=== PATIENT | male | born 1970 | race Caucasian/White ===

== ENCOUNTER 2016-05-21 13:59 | Emergency (ER) | payer OTHER ==
[~2016-05-21] VITALS: Ht 177.8 cm; Wt 75.0 kg
[2016-05-21 14:02] VITALS: BP 137/80; PULSE 75; RESP 10; TEMP 97.4; O2SAT 95
[2016-05-21] MEDS ORDERED: LIDOCAINE HCL 1% 50 ML VIAL INFIL ONE (14:45)
[2016-05-21] MEDS ORDERED: TETANUS/DIPHTHERIA TOXOID ADULT 0.5 ML VIAL IM ONE (14:45)
--- NOTE | 2016-05-21 14:50 | PD ---
HPI Chief Complaint: Laceration/Skin Injury Time Seen by Provider: 14:41 Travel History International Travel<30 days: No Contact w/Intl Traveler<30days: No Traveled to known affect area: No History of Present Illness HPI 46-year-old right-hand dominant male presents to the ED for evaluation of left thumb laceration. Onset after falling at work, tripping and landing on a piece of metal rebar. This lacerated the tip of the thumb. The patient denies numbness, tingling, weakness, limitations to range of motion of the digit. Last tetanus immunization is unknown. He denies chronic health problems, takes no daily medications. NKDA. PFSH Social History Tobacco Use: No Allergies-Medications (Allergen,Severity, Reaction): Coded Allergies: No Known Allergies (Unverified , 05/21/16) Reported Meds & Prescriptions Reported Meds & Active Scripts Active Tramadol (Tramadol HCl) 50 Mg Tab 100 Mg PO Q6H PRN Keflex (Cephalexin) 500 Mg Cap 500 Mg PO Q6H 10 Days Bactrim DS (Sulfamethoxazole-Trimethoprim) 800-160 Mg Tab 1 Tab PO BID Review of Systems Except as stated in HPI: all other systems reviewed are Neg Physical Exam Narrative GENERAL: Well-nourished, well-developed male in no acute distress. SKIN: Warm and dry. The 2 cm laceration to the distal tip of the right thumb. No active bleeding or visible foreign body. HEAD: Normocephalic. EYES: No scleral icterus. No injection or drainage. NECK: Supple, trachea midline. No JVD or lymphadenopathy. CARDIOVASCULAR: Regular rate and rhythm without murmurs, gallops, or rubs. RESPIRATORY: Breath sounds equal bilaterally. No accessory muscle use. GASTROINTESTINAL: Abdomen soft, non-tender, nondistended. MUSCULOSKELETAL: No cyanosis, or edema. FOCUSED RIGHT UPPER EXTREMITY EXAM: Patient maintains full, active range of motion of the fingers of the right hand. Strong finger to thumb opposition. Cap refill less than 2 seconds. Sensation intact to light touch distally. BACK: Nontender without obvious deformity. No CVA tenderness. Data Data Last Documented VS Vital Signs Date Time Temp Pulse Resp B/P Pulse Ox O2 Delivery O2 Flow Rate FiO2 05/21/16 14:02 97.4 75 10 137/80 95 Room Air Orders Tetanus/Diphtheria Tox Adult (Tetanus/Di (05/21/16 14:45) Lidocaine 1% Inj (50 Ml) (Xylocaine 1% I (05/21/16 14:45) Finger ([id number]) (05/21/16 14:38) MDM Medical Decision Making Medical Screen Exam Complete: Yes Emergency Medical Condition: Yes Differential Diagnosis Laceration versus tuft fracture versus partial amputation versus phalangeal fracture versus other Narrative Course 46-year-old right-hand dominant male presents to the ED for evaluation of left thumb laceration. Onset after falling at work, tripping and landing on a piece of metal rebar. This lacerated the tip of the thumb. The patient denies numbness, tingling, weakness, limitations to range of motion of the digit. Last tetanus immunization is unknown. Patient is Macedonian speaking. There is a coworker present who is fluent in Portuguese and [place]onian. The patient requests that this coworker act as american sign language interpreter. Vitals reviewed. Respiratory rate 10 in triage, 16 on my exam. The patient is well-appearing, somewhat anxious. There is a 2cm laceration of the radial aspect of the distal tip of the thumb, which transverses the lateral nail fold. Cap refill less than 2 seconds. Sensation intact to light touch distally. No limitations to range of motion. Strong finger to thumb opposition. X-rays reveal no acute bony injury or foreign body per radiology read. Laceration repair was performed. Please see my procedure note for details. 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 He will be in the area for 3 months. I provided outpatient referral to Dr. Emily Bowser, hand surgeon on-call today. The patient was instructed to keep the wound clean, dry and covered, he was provided course of Bactrim and Keflex as well as a short course of tramadol. We discussed signs of infection, reasons to return to the ED. He is instructed to contact Dr. Bowser's office tomorrow morning. He indicated understanding of these instructions, and is amenable to the plan of care. He is stable and discharged home. Procedures Procedure Narrative LACERATION LOCATION: Left distal thumb, including the radial aspect nail bed LENGTH: 2 cm NUMBER OF STITCHES/LILIANE: 6 REPAIR: The area of the laceration was prepped with Betadine and sterilely draped. A digital block with 1% lidocaine was performed. The wound was copiously irrigated and explored without evidence of foreign body, tendon injury or neurovascular injury. The wound was closed using 4-0 Prolene and 3-0 chromic. This was a single layer repair. A sterile dressing was applied. The patient was advised to keep the dressing clean and dry. Patient tolerated the procedure well. Diagnosis Primary Impression: Laceration of left thumb Qualified Code: S61.012A - Laceration of left thumb, initial encounter Referrals: Emily Bowser MD Patient Instructions: Finger Laceration (ED), General Instructions Additional Instructions: Rest, hydrate. Keep the wound clean, dry and covered. Pain medications as prescribed. Take all antibiotics as prescribed. Limit use of the thumb until evaluated by the hand surgeon. Return to the ED for signs of infection as discussed. Follow-up with Dr. Bowser this week as discussed. Return to the ED for any urgent or emergent medical condition. Med/Other Pt SpecificInfo: Prescription(s) given Scripts Tramadol 50 Mg Uny294 Mg PO Q6H PRN (PAIN) #12 TAB Ref 0 Prov:Francis Lau MD 05/21/16 Cephalexin (Keflex)500 Mg Hel231 Mg PO Q6H 10 Days Ref 0 Prov:Francis Lau MD 05/21/16 Sulfamethoxazole-Trimethoprim (Bactrim DS)800-160 Mg Tab1 Tab PO BID #14 TAB Ref 0 Prov:Francis Lau MD 05/21/16 Disposition: 01 DISCHARGE HOME Condition: Stable Megan Bella May 21, 2016 14:50
--- NOTE | 2016-05-21 15:23 | RADRPT ---
EXAM DATE/TIME: 05/21/2016 15:02 [facility] COMPARISON: No previous studies available for comparison. INDICATIONS : Left hand first digit trauma, metal prasanth sliced and went into first digit. MEDICAL HISTORY : None. SURGICAL HISTORY : None. ENCOUNTER: Initial ACUITY: 1 day PAIN SCORE: 7/10 LOCATION: Left hand, distal first digit. FINDINGS: Examination of the first digit of the left hand demonstrates no evidence of fracture or dislocation. No radiopaque foreign bodies are seen. The soft tissues are intact. CONCLUSION: No acute disease. Farhan Judge MD on May 21, 2016 at 15:21 Board Certified Radiologist. This report was verified electronically.
[2016-05-21] MEDS ORDERED: BACT800T5 PO (15:46)
[2016-05-21] MEDS ORDERED: CEPH-460 PO (15:46)
[2016-05-21] MEDS ORDERED: TRAM50TA PO (15:46)
== END 2016-05-21 16:21 | disposition home or self-care (01) ==
LOC: NEPB 13:59
DX: S61.012A Laceration without foreign body of left thumb without damage to nail, initial encounter (principal); W01.118A Fall on same level from slipping, tripping and stumbling with subsequent striking against other sharp object, initial encounter; Y99.0 Civilian activity done for income or pay; Z23 Encounter for immunization
CPT/HCPCS: 12001; 73140; 90471; 90714